=== PATIENT | male | born 1995 | race Caucasian/White ===

== ENCOUNTER 2020-01-03 17:33 | Emergency (ER) | payer MEDICAID, SELFPAY ==
[2020-01-03 17:29] VITALS: BP 166/101; PULSE 84; RESP 20; TEMP 37; O2SAT 9
--- NOTE | 2020-01-03 17:30 | DI.RAD_ITS ---
EXAM: XR KNEE RT 4V AP,LAT,WALLACE,PAT CLINICAL HISTORY: pain, post patellar dislocation TECHNIQUE: 2D digital imaging was performed. COMPARISON: No exams were available for comparison FINDINGS: The patella is dislocated and is located lateral to the lateral femoral condyle. There is a small f racture fragment located in the intercondylar sulcus which may arise from the medial aspect of the pa tella. A small linear fracture fragment is also seen at the medial aspect of the patella. There is m arked anterior soft tissue swelling. The femur and proximal tibial tibia and fibula appear intact. IMPRESSION: Lateral dislocation of the patella with fracture fragment located in the intercondylar sulcus which m ay originate from the medial aspect of the patella.
--- NOTE | 2020-01-03 18:06 | W.ED.GENAD ---
Discharge Plan Disposition Patient Disposition: HOME Condition: Stable Discharge Details Chief Complaint: Trauma Clinical Impression: Closed dislocation of right patella Primary Care Provider: Flower Huff ED Provider: Cory Prasad Home Meds and New Rx's Prescriptions: No Action No Known Home Meds RF: 0 Discharge Instructions Instructions: Patellar Dislocation (ED) Additional Instructions: Please take ibuprofen over the counter. Take 600mg by mouth every 6 hours as needed for pain. Please use knee immobilizer and crutches. No weightbearing. If swelling becomes severe, you can loosen immobilizer and wrapped. Please contact orthopedics to arrange follow-up. Return to the ER for any worsening or new concerning symptoms. Referrals: Román Hinojosa MD [ [facility] STAFF PHYSICIAN] - Medical Decision Making 18:00 --24-year-old male here with knee pain after twisting the while playing basketball, tender anterior medially with significant effusion and patellar dislocation. Patient provided verbal consent to patella relocation. Patella was reduced very easily by extending leg and manipulating patella medially. Patient tolerated well and no complication. X-ray of the knee was obtained after patellar relocation and patellar seems to have dislocated and subluxed laterally again presumably with positioning during x-ray. -- On reassessment his knee was again slightly flexed. I extended his knee and relocated patella. Aptrick wrap and Knee immobilizer placed. Crutches provided. -- Plan for outpatient follow-up with orthopedics. I did call and speak with Dr. Hinojosa on the case who reviewed x-ray and agrees with the immobilizer and crutches and will see the patient in follow-up this week. HPI General Mode of arrival: EMS. Date/Time Provider Initiated Documentation: 01/03/20 17:40. Limitations to Documentation: no limitations. Information obtained by: patient. HPI Narrative: 24-year-old male presents with right knee pain. Patient notes he was playing basketball and twisted his knee and thinks he dislocated it. It feels like his kneecap is out of place. He has associated swelling and pain. Pain is moderate to severe and worse with attempted movement of the knee. No associated numbness. He has not had patellar dislocation in the past. Related Data Home Medications Medication Instructions Recorded Confirmed Unknown [No Known Home Meds] 01/03/20 01/03/20 Allergies Allergy/AdvReac Type Severity Reaction Status Date / Time amoxicillin Allergy Unknown Hives Unverified 01/03/20 17:36 Penicillins Allergy Unknown Hives Unverified 01/03/20 17:36 General Stated Complaint: Trauma NOEL: 3 Review of Systems Musculoskeletal Musculoskeletal: Reports as per HPI Integumentary/Breasts Skin/Breast: Reports other (No laceration) Neurologic Neurologic: Reports as per HPI [facility] Social History Smoking/Tobacco Use Status: Current every day Alcohol Intake: current Drug use: Never Do you feel safe at home: Yes Do you feel safe in your relationship?: Yes Exam Const General: cooperative and no acute distress HENMT Head: normocephalic Cardio Rate: regular rate and not tachycardic Rhythm: regular rhythm Skin General skin exam: no rashes or lesions noted Neuro General: patient alert, patient awake, patient oriented x3 and tone normal Extrem Right lower extremity: knee Details: tenderness Location: of the patella and of the medial joint line, swelling and abnormal ROM Details: held in an abnormal fashion Details: in flexion, pain with active ROM during Details: in extension and unable to extend lower leg actively Course Vital Signs Vital signs: Vital Signs Temperature 37.0 C 01/03/20 17:29 Pulse 84 01/03/20 17:29 Respiratory Rate 20 01/03/20 17:29 Blood Pressure 166/101 H 01/03/20 17:29 Pulse Oximetry 9 L 01/03/20 17:29 Temperature 37.0 C 01/03/20 17:29 Temperature Source Skin 01/03/20 17:29 Pulse 84 01/03/20 17:29 Respiratory Rate 20 01/03/20 17:29 Respiratory Effort Non-Labored 01/03/20 17:36 Respiratory Depth Normal 01/03/20 17:36 Respiratory Pattern Normal 01/03/20 17:36 Blood Pressure 166/101 H 01/03/20 17:29 Blood Pressure Position Supine 01/03/20 17:29 Pulse Oximetry 9 L 01/03/20 17:29 Oxygen Delivery Method Room Air 01/03/20 17:29 Oxygen Flow Rate 0 01/03/20 17:29 Pain Level 6 01/03/20 17:36 Procedures Orthopedic Joint Reduction Joint #1: Time Out Performed: Yes Side: right Joint Reduction Location: knee/patella Analgesia: none Technique used: direct manipulation (Extension of knee with manipulation of patella medially) Post-reduction neuro exam: intact Post-reduction vascular: intact and no change Patient Tolerated Procedure: well and no complications
--- NOTE | 2020-01-03 18:18 | DI.VRAD_ITS ---
PROCEDURE INFORMATION: Exam: XR Left Knee Exam date and time: 01/03/2020 5:59 PM Age: 24 years old Clinical indication: Other: Pain, post patellar dislocation TECHNIQUE: Imaging protocol: XR Left knee. Views: 4 or more views. COMPARISON: No relevant prior studies available. FINDINGS: Bones/joints: There is a complete lateral patellar dislocation. On the sunrise view between the intercondylar recess there is a 13 mm calcification likely representing a fracture fragment. The donor site is not apparent and the fragment is not visible on the other projections. There is also a linear ossific fragment also on the sunrise view along the medial aspect of the dislocated patella consistent with an avulsion fragment. Soft tissues: There is extensive diffuse soft tissue swelling about the knee. IMPRESSION: Lateral patellar dislocation with associated avulsion fracture and additional fracture fragment of uncertain origin. Dictated and Authenticated by: Fahad Ferrari MD. Ordering:SUNSHINE Ray MD
--- NOTE | 2020-01-03 18:20 | NUR.NOTE ---
Nursing Note: Faxed Referral to Ortho
[2020-01-03 19:03] VITALS: BP 166/101; PULSE 84; RESP 20; TEMP 37; O2SAT 9
== END 2020-01-03 19:05 | disposition home or self-care (01) ==
PROVIDERS: Emergency Provider Student in an Organized Health Care Education/Training Program; PCP Family Medicine
DX: S83.004A Unspecified dislocation of right patella, initial encounter (principal); W00.0XXA Fall on same level due to ice and snow, initial encounter
CPT/HCPCS: 27560; 73564; E0114; L1830

== ENCOUNTER 2020-01-06 11:05 | Outpatient (CLI) | payer MEDICAID, SELFPAY ==
--- NOTE | 2020-01-06 10:45 | DI.RAD_ITS ---
EXAM: XR KNEE RT 3V AP,LAT,WALLACE CLINICAL HISTORY: F/U INJURY. TECHNIQUE: 2D digital imaging was performed. COMPARISON: XR KNEE RT 4V AP,LAT,WALLACE,PAT from 01/03/2020 FINDINGS: BONES: There is again seen a fracture fragment likely arising from the patella. It now lies inferior and medial to the patella. No bony destructive lesion is seen. There is persistent lateral dislocat ion of the right patella. The degree of dislocation has decreased compared to the prior examination. No new fracture is identified. JOINTS: Persistent lateral patellar dislocation. Small joint effusion is present. SOFT TISSUE: Soft tissue swelling is noted. IMPRESSION: Persistent but decreased degree of the lateral dislocation of the right patella. The fracture fragment now lies inferior and medial to the patella. DATA REPOSITORY: RADIATION DOSE DELIVERED:
--- NOTE | 2020-01-06 11:10 | DI.RAD_ITS ---
EXAM: XR ANKLE RT COMPLETE CLINICAL HISTORY: ANKLE SPRAIN. TECHNIQUE: 2D digital imaging was performed. COMPARISON: No exams were available for comparison FINDINGS: BONES: No acute fracture is identified. JOINTS: The ankle mortise is normally aligned. SOFT TISSUE: Normal. IMPRESSION: Unremarkable radiographs of the right ankle. DATA REPOSITORY: RADIATION DOSE DELIVERED:
== END 2020-01-06 11:25 ==
PROVIDERS: PCP Family Medicine; Visit Provider Student in an Organized Health Care Education/Training Program
DX: M25.571 Pain in right ankle and joints of right foot (principal); S93.401A Sprain of unspecified ligament of right ankle, initial encounter; S82.001A Unspecified fracture of right patella, initial encounter for closed fracture; S83.011A Lateral subluxation of right patella, initial encounter; M25.461 Effusion, right knee; M79.89 Other specified soft tissue disorders
CPT/HCPCS: 73562; 73610

== ENCOUNTER 2020-01-13 00:45 | Outpatient (CLI) | payer MEDICAID, SELFPAY ==
--- NOTE | 2020-01-13 10:00 | DI.MRI_ITS ---
EXAM: MR LIMITED EXAM CLINICAL HISTORY: RT PATELLAR FX,CLOSED DISLOCATION,S82.001A,S83.004A,M23.40. TECHNIQUE: High-resolution T1 sagittal, T1 axial and gradient echo axial sequences were performed th rough the region of the patella. There is poor signal to noise on the T1 sagittal sequence. COMPARISON: XR KNEE RT 3V AP,LAT,WALLACE from 01/06/2020 MR LOWER JOINT RT WO from 01/08/2020 FINDINGS: There is fluid and some hemorrhage around the patella. The medial retinaculum is again noted to be disrupted. The bony fragment is faintly visible inferomedial to the patella as seen on the previous exam. A nondisplaced fracture at the medial border of the patella and osteochondral defect at the p atellar apex are again noted. IMPRESSION: The displaced bony fragment is difficult to visualize appears unchanged in position compared with th e previous exam. The CT is recommended for further evaluation. DATA REPOSITORY:
== END 2020-01-13 01:05 ==
PROVIDERS: PCP Family Medicine; Visit Provider Student in an Organized Health Care Education/Training Program
DX: S82.001A Unspecified fracture of right patella, initial encounter for closed fracture (principal); M22.8X1 Other disorders of patella, right knee
CPT/HCPCS: 72141; 72146; 72148

== ENCOUNTER 2020-01-13 11:11 | Outpatient (CLI) | payer MEDICAID, SELFPAY ==
--- NOTE | 2020-01-13 10:48 | DI.RAD_ITS ---
EXAM: XR KNEE RT 1V CLINICAL HISTORY: f/u of right patella dislocation TECHNIQUE: 2D digital imaging was performed. COMPARISON: XR KNEE RT 3V AP,LAT,WALLACE from 01/06/2020 MR LIMITED EXAM from 01/13/2020 FINDINGS: A single patellar view was performed. There has been no change in position of the bony fragment se en adjacent to the medial border of the patella. Lateral patellar subluxation is also unchanged.
== END 2020-01-13 11:31 ==
PROVIDERS: PCP Family Medicine; Visit Provider Student in an Organized Health Care Education/Training Program
DX: S73.01 Posterior subluxation and dislocation of hip (principal); S82.091D Other fracture of right patella, subsequent encounter for closed fracture with routine healing
CPT/HCPCS: 73560

== ENCOUNTER 2021-04-14 14:20 | Emergency (ER) | payer MEDICAID, SELFPAY ==
[2021-04-14 14:23] VITALS: BP 169/104; PULSE 102; TEMP 37.2; O2SAT 96
--- NOTE | 2021-04-14 15:23 | ED.GENADUL_ITS ---
Discharge Plan Disposition Patient Disposition: HOME Condition: Good Discharge Details Clinical Impression: Back pain, Balanitis Primary Care Provider: Flower Huff ED Provider: Alyssa Schrader Home Meds and New Rx's Prescriptions: New orphenadrine citrate 100 mg tablet extended release 100 mg PO BID Qty: 10 RF: 0 clotrimazole 1 % cream 1 applic topical BID 14 Days Qty: 90 RF: 0 Discharge Instructions Instructions: Back Pain (ED) Additional Instructions: Attention to genital hygiene is the most important approach for most men with balanitis. Retraction of the foreskin with thorough genital cleansing can be both preventive and therapeutic. Twice-daily bathing of the affected area with saline solution should be encouraged [22,26]. Light stretching is recommended, no lifting greater than 5 pounds use clotrimazole for 7-14 days loose fitting clothing Or worsening back pain, groin numbness, changes in bowel or bladder, fever, chills, radiation pain or weakness in your extremities, is recommended to be reevaluated Stand Alone Forms: Work Release Discharge Data Discharge Date/Time-TO BE ENTERED AT DEPARTURE: 04/14/21 15:37 Medical Decision Making Patient appears well, no clinical evidence of cauda equina syndrome, ambulatory with steady gait Neurologically intact, suspect musculoskeletal back pain Placed on Norflex and ibuprofen Prescribed clotrimazole for balanitis likely fungal Hygiene discussed Return precautions discussed Work note supplied Patient discharged home in stable condition, blood pressure is elevated, patient instructed to have this rechecked by primary care physician, respiration rate 14 Precautions discussed understanding Declines risk of sexually transmitted disease Extracted with patient Medical Records Medical records reviewed: Yes I reviewed the patient's medical records. Lab Data Lab results reviewed: Yes I reviewed the patient's lab results. HPI General Date/Time Provider Initiated Documentation: 04/14/21 14:39 . Limitations to Documentation: no limitations . Information obtained by: patient . 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 He states he recommended 7. Defibrillator today the pain is worsening. Is exacerbated by flexion extension. He denies any groin numbness, history of illicit drug use, or radiation of pain. He denies any strength or sensation changes to extremities. He also complains of pain and swelling to his foreskin. He states he started using Cottonelle wipes and the foreskin became very painful and macerated. He states that when he urinates it nance in the area. He states he is able to move his foreskin back with discomfort. Denies any additional complaints this time. Related Data Home Medications Medication Instructions Recorded Confirmed clotrimazole 1 applic TOPICAL BID 14 Days #90 g 04/14/21 orphenadrine citrate 100 mg PO BID #10 tab 04/14/21 Previous Rx's Medication Instructions Recorded clotrimazole 1 applic TOPICAL BID 14 Days #90 g 04/14/21 orphenadrine citrate 100 mg PO BID #10 tab 04/14/21 Allergies Allergy/AdvReac Type Severity Reaction Status Date / Time amoxicillin Allergy Unknown Hives Verified 04/14/21 14:32 Penicillins Allergy Unknown Hives Verified 04/14/21 14:32 General Stated Complaint: GenMedical NOEL: 3 Review of Systems All systems reviewed & are unremarkable except as noted in HPI and below PFSH Social History Smoking/Tobacco Use Status: Former Tobacco Use Quit Date: 09/24/15 Tobacco: How many years used: 5 Smoking risk assessment performed?: Yes Alcohol Intake: current Alcohol Intake frequency: a few times a week Alcohol type: beer Drug use: Never Substance use type: does not use Current gender identity: male Do you feel safe at home: Yes Do you feel safe in your relationship?: Yes Exam Const General: cooperative, comfortable and no acute distress Resp Effort & Inspection: normal respiratory effort Cardio Rate: regular rate Other: Distal pulses intact GI Other: No abdominal tenderness Other: Macerated foreskin likely can pinch with a tinea curious infection And balanitis Patient without any evidence of overlying cellulitis, no paraphimosis or phimosis noted Back/Spine/Pelvis Back: no CVA tenderness Other: Mild paraspinal tenderness to right thigh, no midline tenderness Neuro Other: No sensory deficits, DTRs intact bilateral lower extremities, negative Babinski, negative straight leg raise, strength intact bilateral lower extremities Course Vital Signs Vital signs: Vital Signs Temperature 37.2 C 04/14/21 14:23 Pulse 102 H 04/14/21 14:23 Blood Pressure 169/104 H 04/14/21 14:23 Pulse Oximetry 96 04/14/21 14:23 Temperature 37.2 C 04/14/21 14:23 Temperature Source Temporal Artery Scan 04/14/21 14:23 Pulse 102 H 04/14/21 14:23 Respiratory Effort Non-Labored 04/14/21 14:30 Blood Pressure 169/104 H 04/14/21 14:23 Blood Pressure Position Sitting 04/14/21 14:23 Pulse Oximetry 96 04/14/21 14:23 Oxygen Delivery Method Room Air 04/14/21 14:23 Oxygen Flow Rate 0 04/14/21 14:23 Pain Level 9 04/14/21 14:23 Comment 04/14/21 14:23
== END 2021-04-14 15:37 | disposition home or self-care (01) ==
PROVIDERS: Emergency Provider Physician Assistant; PCP Family Medicine
DX: M54.89 Other dorsalgia (principal); X50.1XXA Overexertion from prolonged static or awkward postures, initial encounter; Y99.0 Civilian activity done for income or pay; N48.1 Balanitis
CPT/HCPCS: 99283

== ENCOUNTER 2022-03-10 10:00 | Emergency (ER) | payer BC, MEDICAID, SELFPAY ==
[2022-03-10 10:07] VITALS: BP 160/95; PULSE 90; RESP 17; TEMP 36.8; O2SAT 98
--- NOTE | 2022-03-10 10:15 | W.ED.GENAD ---
Discharge Plan Disposition Patient Disposition: HOME Condition: Stable Discharge Details Clinical Impression: Right inguinal pain Primary Care Provider: Flower Huff ED Provider: Aniceto Yanez Home Meds and New Rx's Prescriptions: No Action No Known Home Meds Discharge Instructions Instructions: Inguinal Hernia (ED) Additional Instructions: Your laboratory values do not reveal any obvious emergent process. Your history and physical are most consistent with a right-sided inguinal hernia. Please watch for new or worsening symptoms and return to the ER for any concerns. Otherwise I recommend contacting our surgical team to discuss your ongoing symptoms and potential outpatient surgical intervention Referrals: Corina Randle DO [OSTEOPATHIC DOCTOR] - Medical Decision Making This is a 27-year-old gentleman who denies significant past medical history. He presents today for evaluation of what he describes as a right-sided abdominal pain. When he is asked to show where the pain is he actually points to his groin. He tells me the pain today is worse than usual but he has had pain in this area over the past year intermittently, nothing really makes it worse or better. 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 He tells me he is concerned that this may be his appendix or possibly a hernia. Clinically this would appear to be an inguinal hernia although I am unable to appreciate one on my examination. Abdomen is soft, nontender. Groin is unremarkable. Denies any dysuria, hematuria, penile discharge, pain or swelling in his testicles. No findings consistent with a strangulated or incarcerated hernia. Plan is to obtain CBC, CMP, urinalysis and lipase and reassess No evidence of leukocytosis. Electrolytes unremarkable. Patient with a total bili of 1.4, no previous to compare with. AST and ALT minimally elevated at 71 and 98. He denies any right upper quadrant pain, fever, nausea or vomiting. Lipase is 35. No change of appetite. Again he presents today for right lower abdominal pain which is truly his right groin, concerning for a hernia. Based upon these incidental findings I do not believe they require emergent imaging. He has a urinalysis reveals no signs of hematuria or infection. Strict discharge and return precautions were provided. Will provide surgical referral for evaluation of his likely inguinal hernia and slightly abnormal LFTs. Strict discharge and return precautions were provided. Patient understands, is agreeable to this plan, and has no additional questions or concerns upon discharge. This documentation was generated using [employer]aren[employer] system, please disregard any oddities of phrase or misspellings. Medical Records Medical records reviewed: Yes I reviewed the patient's medical records. Lab Data Lab results reviewed: Yes I reviewed the patient's lab results. Labs: Laboratory Tests Range/Units 03/10/22 03/10/22 03/10/22 10:15 10:15 10:35 WBC (4.4-10.8) 10^3/uL 8.18 RBC (4.36-5.78) 10^6/uL 5.01 Hgb (13.5-17.5) g/dL 16.1 Hct (40.0-50.0) % 46.7 MCV (80-95) fL 93 MCH (27.0-33.0) pg 32.1 MCHC (32.0-36.0) % 34.5 RDW (11.8-14.1) % 11.6 L Plt Count (130-400) 10^3/uL 256 MPV (8.0-11.0) fL 10.3 Immature Gran % 0.2 Neutrophils % 66.5 Lymphocytes % 22.2 Monocytes % 8.2 Eosinophils % 2.0 Basophils % 0.9 Nucleated RBC % (0.0-0.3) % 0.0 Absolute Neutrophils (1.2-6.7) 10^3/uL 5.44 Absolute Lymphocytes (1.2-3.4) 10^3/uL 1.82 Absolute Monocytes (0.1-0.8) 10^3/uL 0.67 Absolute Eosinophils (0.0-0.7) 10^3/uL 0.16 Absolute Basophils (0.0-0.2) 10^3/uL 0.07 Sodium (136-145) mmol/L 142 Potassium (3.5-5.1) mmol/L 3.6 Chloride (98-107) mmol/L 106 Carbon Dioxide (21.0-32.0) mmol/L 26.1 Anion Gap (3-11) mmol/L 9.9 BUN (7-18) mg/dL 8 Creatinine (0.70-1.30) mg/dL 0.7 Estimated GFR/1.73 m2 (mL/min/1.73m2) >= 60.00 Glucose (74-106) mg/dL 159 H Calcium (8.5-10.1) mg/dL 9.3 Total Bilirubin (0.2-1.0) mg/dL 1.4 H AST (15-37) U/L 71 H ALT (16-63) U/L 98 H Alkaline Phosphatase (46-116) U/L 108 Total Protein (6.4-8.2) g/dL 8.4 H Albumin (3.4-5.0) g/dL 4.1 Lipase (73-393) U/L 35 Urine Color (Yellow) Yellow Urine Clarity (Clear) Clear Urine pH (5-8) 6.5 Ur Specific Bill[place] (1.005-1.025) 1.025 Urine Protein (Negative) mg/dL Negative Urine Ketones (Negative) mg/dL Negative Urine Blood (Negative) Negative Urine Nitrite (Negative) Negative Urine Bilirubin (Negative) Negative Urine Urobilinogen (Up TO 0.2) EU/dL 1.0 H Ur Leukocyte Esterase (Negative) Negative Urine Glucose (Negative) mg/dL Negative HPI General Mode of arrival: ambulatory. Date/Time Provider Initiated Documentation: 03/10/22 10:01. Limitations to Documentation: no limitations. Information obtained by: patient. History of Present Illness 27 year old M presents to the emergency department with the chief complaint of abd pain, described as moderate, with intensity rated at 4. Quality is described as aching, and is localized to the abdomen and right. Patient reports no radiation. Patient started experiencing this day(s) (3) and it has been constant. No relieving factors improve symptom(s), No exacerbating factors reported . Patient notes no other symptoms.. Patient did receive the following treatments prior to arrival, none Related Data Home Medications Medication Instructions Recorded Confirmed Unknown [No Known Home Meds] 03/10/22 03/10/22 Allergies Allergy/AdvReac Type Severity Reaction Status Date / Time amoxicillin Allergy Unknown Hives Verified 03/10/22 10:16 Penicillins Allergy Unknown Hives Verified 03/10/22 10:16 General Stated Complaint: Abd Prob NOEL: 3 Review of Systems Constitutional Constitutional: Denies fever(s) Cardiovascular Cardiovascular: Denies chest pain and Denies dyspnea Respiratory Respiratory: Denies cough and Denies dyspnea Gastrointestinal Gastrointestinal: Reports abdominal pain, Denies constipation, Denies diarrhea, Denies nausea and Denies vomiting Genitourinary Genitourinary: Denies dysuria Musculoskeletal Musculoskeletal: Denies back pain Integumentary/Breasts Skin/Breast: Denies rash PFSH All Active Problems (Updated 03/10/22 @ 11:10 by DILIP Chairez) Back pain (Acute) Balanitis (Acute) Right inguinal pain (Acute) Dislocation, patella closed (Acute 01/03/20) Right patella fracture (Acute 01/03/20) Bodies, loose, knee (Acute 01/03/20) Social History Smoking/Tobacco Use Status: Former Tobacco Use Quit Date: 09/24/15 Tobacco: How many years used: 5 Smoking risk assessment performed?: Yes Alcohol Intake: current Alcohol Intake frequency: a few times a week Alcohol type: beer Drug use: Socially Substance use type: marijuana Current gender identity: male Do you feel safe at home: Yes Do you feel safe in your relationship?: Yes Exam Const General: cooperative, healthy appearing, comfortable and no acute distress Orientation: alert and awake HENTX Head: normal to inspection, normocephalic and atraumatic Face and sinus: normal facial exam Mouth: moist mucous membranes Eyes General: appearance normal, both eyes and all related structures Conjunctivae: conjunctivae normal Neck Neck: normal visual inspection, trachea midline and supple Resp Effort & Inspection: normal respiratory effort and able to speak in complete sentences Auscultation: clear to auscultation bilaterally Cardio Rate: regular rate Rhythm: regular rhythm GI Inspection: normal to inspection and obesity Palpation: soft, not firm, no guarding, no pulsatile masses and nontender Auscultation: normal bowel sounds Male General Exam: Yes normal external exam, No hernia and Yes other (Examined both while lying and standing) Penis: normal penis Meatus: meatus normal Scrotum: scrotum normal Testes: normal Back/Spine/Pelvis Back: no CVA tenderness and No back tenderness Skin General skin exam: no rashes or lesions noted Neuro General: patient alert, patient awake, moves all extremities and no focal motor deficits Sensory Exam: no sensory deficits noted Psych Appearance: grossly normal Mental Status: mental status grossly normal Course Vital Signs Vital signs: Vital Signs Temperature 36.8 C 03/10/22 10:07 Pulse 90 03/10/22 10:07 Respiratory Rate 17 03/10/22 10:07 Blood Pressure 160/95 H 03/10/22 10:07 Pulse Oximetry 98 03/10/22 10:07 Temperature 36.8 C 03/10/22 10:07 Temperature Source Temporal Artery Scan 03/10/22 10:07 Pulse 90 03/10/22 10:07 Respiratory Rate 17 03/10/22 10:07 Respiratory Effort Non-Labored 03/10/22 10:10 Blood Pressure 160/95 H 03/10/22 10:07 Blood Pressure Position Sitting 03/10/22 10:07 Pulse Oximetry 98 03/10/22 10:07 Oxygen Delivery Method Room Air 03/10/22 10:07 Oxygen Flow Rate 0 03/10/22 10:07 Pain Level 9 03/10/22 10:10 PAWSS Have you Been Recently Intoxicated or Drunk Within the Last 30 days?: Yes Have you Ever Experienced Previous Episodes of Alcohol Withdrawal?: No Have you ever Experienced Withdrawal Seizures?: No Have you ever Experienced Delirium Tremens(DT)s?: No Have you ever undergone Alcohol Rehabilitation Treatment (i.e, inpt ot outpatient treatment programs)?: No Have you ever Experienced Blackouts?: No Have you ever Combined Alcohol with other Downers within the last 90 days?: No Have you ever Combined Alcohol with any other Substance of Abuse during the last 90 days?: No Result: 1
[2022-03-10 10:26] LABS: Abs Immature Grans 0.02 10^3/uL (0.0-0.06); Absolute Basophil Count 0.07 10^3/uL (0.0-0.2); Absolute Eosinophil Count 0.16 10^3/uL (0.0-0.7); Absolute Lymphocyte Count 1.82 10^3/uL (1.2-3.4); Absolute Monocyte Count 0.67 10^3/uL (0.1-0.8); Absolute Neutrophil Count 5.44 10^3/uL (1.2-6.7); Basophils % 0.9; HCT 46.7 % (40.0-50.0); HGB 16.1 g/dL (13.5-17.5); Immature Grans % 0.2; Lymphocytes % 22.2; MCH 32.1 pg (27.0-33.0); MCHC 34.5 % (32.0-36.0); MCV 93 fL (80-95); MPV 10.3 fL (8.0-11.0); Monocytes % 8.2; Neutrophils % 66.5; Platelet Count 256 10^3/uL (130-400); RBC 5.01 10^6/uL (4.36-5.78); RDW 11.6 % (11.8-14.1); RDW-SD 39.3 fL; WBC 8.18 10^3/uL (4.4-10.8)
[2022-03-10 10:45] LABS: Bilirubin Negative (Negative); Blood Negative (Negative); Clarity Clear (Clear); Glucose Negative (Negative); Ketones Negative (Negative); Leukocyte Esterase Negative (Negative); Nitrite Negative (Negative); Specific Gravity 1.025 (1.005-1.025); pH 6.5 (5-8)
[2022-03-10 10:48] LABS: ALT 98 U/L (16-63); AST 71 U/L (15-37); Albumin 4.1 g/dL (3.4-5.0); Alkaline Phosphatase 108 U/L (46-116); Anion Gap 9.9 mmol/L (3-11); BUN 8 mg/dL (7-18); Bilirubin, Total 1.4 mg/dL (0.2-1.0); CO2 26.1 mmol/L (21.0-32.0); CREATININE 0.7 mg/dL (0.70-1.30); Calcium 9.3 mg/dL (8.5-10.1); Chloride 106 mmol/L (98-107); Glucose 159 mg/dL (74-106); Lipase 35 U/L (73-393); Potassium 3.6 mmol/L (3.5-5.1); Sodium 142 mmol/L (136-145); Total Protein 8.4 g/dL (6.4-8.2)
== END 2022-03-10 11:15 | disposition home or self-care (01) ==
PROVIDERS: Emergency Provider Physician Assistant; PCP Family Medicine
DX: R10.31 Right lower quadrant pain (principal)
CPT/HCPCS: 36415; 80053; 83690; 99283; 81003; 85025

== ENCOUNTER 2022-05-02 11:46 | Emergency (ER) | payer BC, MEDICAID, SELFPAY ==
[2022-05-02] VITALS (20 sets, daily range): BP systolic 143–167; BP diastolic 75–105; PULSE 70–102; RESP 11–27; TEMP 36.7–37.2; O2SAT 96–100
--- NOTE | 2022-05-02 11:45 | RT.EKG_ITS ---
APPROVED REPORT Exam: Resting ECG Reason for Exam: feeling faint Patient Location: E HR:81 bpm ECG Measurements Heart Rate 81 AXIS MO 176 P 62 QRSd 109 QRS 11 QT 373 T 27 QTc 434 Conclusion Sinus rhythm...normal P axis, V-rate 60- 99 sinus rhythm, normal axis, normal intervals
--- NOTE | 2022-05-02 12:05 | DI.RAD_ITS ---
Exam(s) XR CHEST 1V IN DI DEPT EXAM: XR CHEST 1V IN DI DEPT CLINICAL HISTORY: htn and tachycardia TECHNIQUE: 2D digital imaging was performed. COMPARISON: No exams were available for comparison FINDINGS: LUNGS: Clear. No pleural abnormality seen. HEART: Normal. AORTA: Normal. BONES: Unremarkable for age. Soft tissues: Unremarkable. IMPRESSION: No acute findings. DATA REPOSITORY: RADIATION DOSE DELIVERED:
--- NOTE | 2022-05-02 12:07 | ED.GENADUL_ITS ---
Discharge Plan Disposition Patient Disposition: HOME Condition: Improving Discharge Details Chief Complaint: Dizzy/Sync Clinical Impression: Acute dehydration, Fatigue, Hepatic steatosis Primary Care Provider: Flower Huff ED Provider: Patel Marcelino Home Meds and New Rx's Prescriptions: No Action No Known Home Meds Discharge Instructions Instructions: Dehydration (ED) Additional Instructions: Please follow-up with your primary care physician. Please discuss your blood test findings which include elevated liver enzymes. Please return to the emergency department you develop any worsening symptoms. Ensure that you stay hydrated consider using Gatorade and/or Pedialyte Medical Decision Making 27-year-old male denies chest medical history presents feeling lightheaded, jittery and weakness to his bilateral legs in the setting of lifting a desk at work, felt a nieto to his body, slightly improved after rest and eating a popsicle, does have some drying of oral mucosa and warm dry skin, no chest pain or shortness of breath did have mild nausea. Endorses eating a small breakfast today. Family history of diabetes. No history of cardiac disease or stroke for the patient. Consider overexertion with component of heat exposure versus dehydration versus electrolyte abnormality versus hypoglycemia versus panic attack lower suspicion for ACS PE aortic pathology infectious etiology or stroke. Screening labs fluids antiemetic and anxiolysis, rest close reassessment likely home with close follow-up pending results 14: 24 patient resting comfortably no acute distress. Feeling better after rest and fluids. Blood pressure is improved. Evidence of transaminitis and hepatic steatosis likely related to body habitus and diet. No evidence of cholecystitis. Home care instructions and return precautions given. Family here to take him home. Patient will follow up with his primary care physician. HPI General Date/Time Provider Initiated Documentation: 05/02/22 11:48 . HPI Narrative: 27-year-old male no past medical history presents feeling lightheaded, endorses feeling a nieto to his body while lifting a desk at work, denies history of cardiac disease stroke or diabetes however diabetes does run in the family, did eat a small breakfast this morning. No chest pain or shortness of breath. Did not lose consciousness however feels jittery. Denies new stressors at work or at home. Did have sensation that his legs felt weak during this event. Currently feeling slightly better was given a popsicle at work by a coworker Related Data Home Medications Medication Instructions Recorded Confirmed Unknown [No Known Home Meds] 03/10/22 05/02/22 Allergies Allergy/AdvReac Type Severity Reaction Status Date / Time amoxicillin Allergy Unknown Hives Verified 05/02/22 11:55 Penicillins Allergy Unknown Hives Verified 05/02/22 11:55 General Stated Complaint: Dizzy/Sync NOEL: 3 Review of Systems Narrative: Review of Systems Constitutional: Fatigue Eyes: negative ENT: negative Cardiovascular: negative Respiratory: negative Gastrointestinal: nausea : negative Musculoskeletal: negative Skin: negative Neurologic: Leg weakness Psych: negative PFSH All Active Problems (Updated 05/02/22 @ 14:27 by Patel Marcelino MD) Acute dehydration (Acute) Fatigue (Acute) Hepatic steatosis (Acute) Hypertension (Chronic) Medical History Ankle sprain (01/03/20) Back pain Balanitis Bodies, loose, knee (01/03/20) Dislocation, patella closed (01/03/20) Right patella fracture (01/03/20) Social History Smoking/Tobacco Use Status: Former Tobacco Use Quit Date: 09/24/15 Tobacco: How many years used: 5 Smoking risk assessment performed?: Yes Alcohol Intake: current Alcohol Intake frequency: a few times a week Alcohol type: beer Drug use: Socially Substance use type: marijuana Current gender identity: male Do you feel safe at home: Yes Do you feel safe in your relationship?: Yes Exam Narrative Exam Narrative: Physical Examination General: alert, awake, cooperative, appears moderately uncomfortable HEENT: normocephalic, atraumatic; PERRL, EOM intact, conjunctiva normal; no nasal discharge; dry oral mucosa Neck: supple, trachea midline; full ROM Chest: normal to inspection Respiratory: normal respiratory effort, speaking in full sentences, clear to auscultation, no wheezing, rales or rhonchi Cardiac: Tachycardia, regular rhythm, S1S2 intact, no murmurs rubs or gallops GI: abdomen soft, non-tender, non-distended; no palpable mass or hepatosplenomegaly Skin: slightly warm and dry Neuro: AAOx3, normal speech, moving all extremities Extremities: No signs of trauma Psych: Appears slightly anxious Course Vital Signs Vital signs: Vital Signs Temperature 36.7 C 05/02/22 11:51 Pulse 102 H 05/02/22 11:51 Respiratory Rate 16 05/02/22 11:51 Blood Pressure 167/105 H 05/02/22 11:51 Pulse Oximetry 98 05/02/22 11:51 Temperature 36.7 C 05/02/22 11:51 Pulse 102 H 05/02/22 11:51 Respiratory Rate 16 05/02/22 11:51 Respiratory Effort 05/02/22 11:58 Respiratory Depth Normal 05/02/22 11:58 Respiratory Pattern Normal 05/02/22 11:58 Blood Pressure 167/105 H 05/02/22 11:51 Pulse Oximetry 98 05/02/22 11:51
[2022-05-02] MEDS: Normal Saline 1,000 ML 1000 ML IV (12:24)
[2022-05-02] MEDS: Ondansetron 4 MG/2 ML VIAL IVP (12:26)
[2022-05-02 12:32] LABS: Abs Immature Grans 0.03 10^3/uL (0.0-0.06); Absolute Basophil Count 0.07 10^3/uL (0.0-0.2); Absolute Lymphocyte Count 1.15 10^3/uL (1.2-3.4); Basophils % 0.9; Eosinophils % 1.2; HCT 46.6 % (40.0-50.0); HGB 16.2 g/dL (13.5-17.5); Immature Grans % 0.4; Lymphocytes % 14.1; MCH 32.1 pg (27.0-33.0); MCHC 34.8 % (32.0-36.0); MCV 92 fL (80-95); MPV 10.1 fL (8.0-11.0); Monocytes % 7.4; Platelet Count 213 10^3/uL (130-400); RBC 5.05 10^6/uL (4.36-5.78); RDW 11.7 % (11.8-14.1); RDW-SD 39.3 fL; WBC 8.15 10^3/uL (4.4-10.8)
[2022-05-02 12:33] LABS: Bilirubin Negative (Negative); Blood Negative (Negative); Clarity Clear (Clear); Glucose Negative (Negative); Ketones 15 mg/dL (Negative); Leukocyte Esterase Negative (Negative); Nitrite Negative (Negative); Specific Gravity 1.025 (1.005-1.025); Urobilinogen 0.2 EU/dL (Up TO 0.2)
[2022-05-02 12:45] LABS: Bacteria Negative HPF (Negative); C & S Indicated? No; Casts 0-2 Hyaline LPF (Negative); Crystals Negative HPF (Negative); Epithelial Cells Few HPF (Negative); Mucus Trace (Negative); RBC Negative HPF (0-2); WBC Negative HPF (0-5)
[2022-05-02 12:46] LABS: *AMPHETAMINES SCREEN URINE Negative (Negative); *BARBITURATES SCREEN URINE Negative (Negative); *BENZODIAZEPINES SCREEN URINE Negative (Negative); Cannabinoids THC Positive (Negative); Cocaine Screen,Urine Negative (Negative); METHADONE URINE SCREEN Negative (Negative); OPIATES URINE SCREEN Negative (Negative)
[2022-05-02 12:49] LABS: Tricyclic Antidepressants Negative (Negative)
[2022-05-02 12:58] LABS: ALT 108 U/L (16-63); AST 92 U/L (15-37); Albumin 4.2 g/dL (3.4-5.0); Alkaline Phosphatase 104 U/L (46-116); Anion Gap 10.1 mmol/L (3-11); BUN 6 mg/dL (7-18); Bilirubin, Total 1.6 mg/dL (0.2-1.0); CO2 25.9 mmol/L (21.0-32.0); CREATININE 0.7 mg/dL (0.70-1.30); Calcium 8.9 mg/dL (8.5-10.1); Chloride 103 mmol/L (98-107); Glucose 154 mg/dL (74-106); Magnesium 1.3 mg/dL (1.8-2.4); Potassium 3.4 mmol/L (3.5-5.1); Sodium 139 mmol/L (136-145); TSH (W/Ref FT4) 1.26 uIU/mL (0.36-3.74); Total Protein 8.3 g/dL (6.4-8.2); Troponin I < 50 ng/L (<or=60)
--- NOTE | 2022-05-02 13:00 | DI.CT_ITS ---
Exam(s) CT ABDOMEN PELVIS WO EXAM: CT ABDOMEN PELVIS WO CLINICAL HISTORY: lightheaded nausea, transaminitis and hyperbili. TECHNIQUE: Imaging Protocol: Axial computed tomography images with coronal and sagittal reformatted images were created and reviewed. Oral: no COMPARISON: No exams were available for comparison FINDINGS: ABDOMEN: Lung Bases: Normal where visualized. Liver: Enlarged at 23 cm in length. Severe hepatic steatosis.. No measurable mass. Gallbladder and biliary tract: No radiodense calculus or dilation. Pancreas: Normal density, no abnormal calcifications or inflammatory process. Spleen: Normal. Kidneys: Normal size, contour and axis. No radiodense stones or obstructive uropathy. No masses seen. Adrenal glands: No masses seen. Lymph nodes: Within normal limits. Abdominal Aorta: Abdominal portion non-dilated. PELVIS: Bladder: Symmetric distention, no gross wall thickening. Bowel: No obstruction or bowel wall thickening. Peritoneal cavity: No ascites, collection or mesenteric inflammatory response. Reproductive organs: Within normal limits. Bones: There are endplate osteophytes and and calcification at L3-4 projecting into the central canal , causing a moderate degree of central canal stenosis. Mild spurring is seen posteriorly at the L5-S 1 disc level. IMPRESSION: Severe hepatic steatosis. RADIATION DOSE DELIVERED: 1,116.49mGy.cm Total DLP DATA REPOSITORY: All CT scans at this facility are submitted to the National Radiology Data Registry (NRDR) Dose Index Registry (DIR) with the [employer] (ACR). RADIATION OPTIMIZATION: All CT scans at this facility use at least one of these dose optimization te chniques: automated exposure control; mA and/or kV adjustment per patient size (includes targeted exa ms where dose is matched to clinical indication); or iterative reconstruction.
--- NOTE | 2022-05-02 13:09 | CMPROGNOTE_ITS ---
- If Service Date Differs Date of service: 05/02/22 Time of Service: 13:09 Care Management Progress Note SBIRT screen: positive for anxiety ([facility]). Pt reports he occasionally uses cannabis to relieve anxiety but it is infrequent (monthly). We discussed effective practices for anxiety including mindfulness meditation and therapy. Pt endorses some experience with meditation. Pt was provided with resources for counseling in the community including the 24 hour number at [facility] for support as needed. Pt was encouraged to follow up with his PCP.
== END 2022-05-02 14:53 | disposition home or self-care (01) ==
PROVIDERS: Emergency Provider Emergency Medicine; PCP Family Medicine
DX: E86.0 Dehydration (principal); K76.0 Fatty (change of) liver, not elsewhere classified; Z87.891 Personal history of nicotine dependence; R00.0 Tachycardia, unspecified
CPT/HCPCS: 36415; 80053; 80307; 93005; 96361; 96374; 96375; 99285; 71045; 74176; 81003; 81015; 83735; 84443; 84484; 85025; 93010; 99284; J2405

== ENCOUNTER 2022-05-10 15:41 | Outpatient (REF) | payer BC, MEDICAID, SELFPAY ==
[2022-05-10 19:37] LABS: Hemoglobin A1C 5.9 % (<5.7); Iron 74 ug/dL (65-175); Total Iron Binding Capacity 251 ug/dL (250-450); Transferrin Sat 29 % (20-55)
[2022-05-10 19:38] LABS: Calculated LDL 95 mg/dL (<100); Cholesterol 169 mg/dL (<200); HDL Cholesterol 47 mg/dL (40-60); Triglyceride 136 mg/dL (<150)
[2022-05-12 11:04] LABS: Hepatitis A Antibody IgM Negative (Negative); Hepatitis B Core Antibody Negative (Negative); Hepatitis B surface Ag Negative (Negative); Hepatitis C Ab w Rflx HCV PCR Negative (Negative)
== END 2022-05-10 15:42 | disposition home or self-care (01) ==
LOC: NCHCN 15:41
PROVIDERS: PCP Family Medicine; Visit Provider Family Medicine
DX: F41.8 Other specified anxiety disorders (principal); K76.0 Fatty (change of) liver, not elsewhere classified
CPT/HCPCS: 80061; 86704; 86709; 86803; 87340; 83036; 83540; 83550

== ENCOUNTER 2023-05-22 09:36 | Emergency (ER) | payer MEDICAID, SELFPAY ==
[2023-05-22] VITALS (63 sets, daily range): BP systolic 142–167; BP diastolic 83–103; PULSE 76–101; RESP 12–30; TEMP 36.6; O2SAT 92–100
--- NOTE | 2023-05-22 09:45 | RT.EKG_ITS ---
APPROVED REPORT Exam: Resting ECG Reason for Exam: dizziness sob Patient Location: E HR:88 bpm ECG Measurements Heart Rate 88 AXIS DC 183 P 47 QRSd 104 QRS 15 QT 387 T 17 QTc 468 Conclusion Sinus rhythm...normal P axis, V-rate 60- 99 ST elev, probable normal early repol pattern...ST elevation, age<55
[2023-05-22] MEDS: Droperidol 5 MG/2 ML VIAL 2.5 MG IVP (10:04)
[2023-05-22] MEDS: Normal Saline 1,000 ML 1000 ML IV (10:05)
[2023-05-22 10:06] LABS: Abs Immature Grans 0.02 10^3/uL (0.0-0.06); Absolute Eosinophil Count 0.05 10^3/uL (0.0-0.7); Absolute Lymphocyte Count 1.02 10^3/uL (1.2-3.4); Absolute Monocyte Count 0.43 10^3/uL (0.1-0.8); Absolute Neutrophil Count 4.07 10^3/uL (1.2-6.7); Basophils % 1.8; Eosinophils % 0.9; HCT 49.9 % (40.0-50.0); HGB 17.8 g/dL (13.5-17.5); Immature Grans % 0.4; Lymphocytes % 17.9; MCH 32.9 pg (27.0-33.0); MCHC 35.7 % (32.0-36.0); MCV 92 fL (80-95); MPV 9.6 fL (8.0-11.0); Monocytes % 7.6; Neutrophils % 71.4; Platelet Count 262 10^3/uL (130-400); RBC 5.41 10^6/uL (4.36-5.78); RDW 11.4 % (11.8-14.1); RDW-SD 38.6 fL; WBC 5.69 10^3/uL (4.4-10.8)
--- NOTE | 2023-05-22 10:07 | ED.GENADUL_ITS ---
Discharge Plan Disposition Patient Disposition: Home Condition: Stable Discharge Details Clinical Impression: N&V (nausea and vomiting) Primary Care Provider: Flower Huff ED Provider: Celso Funk Home Meds and New Rx's Prescriptions: New ondansetron 4 mg tablet,disintegrating 4 mg PO Q8H PRN (Reason: nausea and vomiting) Qty: 30 0RF Discharge Instructions Instructions: Acute Nausea and Vomiting (ED) Additional Instructions: your blood work and xray did not show concerning findings today if symptoms continue in a week follow up with your primary care provider if you feel more ill, have severe worsening pain or persistent vomiting despite the prescribed medication return to the emergency department Medical Decision Making 28 yo male who denies chronic medical problems comes in with n/v starting this morning. He states he was doing well until this morning when he started to have n/v and felt short of breath while vomiting. He also noted some bruising and denies any trauma. Did feel lightheaded as well. He is caox4 speaking clearly and in no distress. He has no focal deficits, CN II_XII intact, nih of 0. he has no abdominal tenderness, clear lungs, no murmurs. He has a 3cm what appears to be a healing contusion on the left lateral chest without tenderness kayy 2cm contusion on the right lateral chest that is also not tender. Unclear etiology for his symptoms, will obtain cbc, ekg/troponin and cmp with lipase. Will treat with fluids and droperidol. He is perc negative and wells low so doubt Pe and no tearing back pain with equal peripheral pulses so doubt dissection labs and imaging with no acute emergent findings, patient feels better and is tolerating po. No abdominal tenderness and no chest pain so do not feel further imaging indicated. He is stable for d/c, advised to f/u with his pcp and return precautions given Differential Diagnosis Differential Diagnosis: tick illness, gastroenteritis, food illness Medical Records Medical records reviewed: Yes I reviewed the patient's medical records. Imaging Data Radiologic Study: Attestation: I personally reviewed and interpreted this imaging study as follows: Imaging: X-Ray Radiologist's impression: no acute findings Lab Data Lab results reviewed: Yes I reviewed the patient's lab results. ECG Data Attestation: I personally reviewed and interpreted this ECG (s) as follows: Prior ECG tracings: available for review Interpretation: sinus rate of 88, pr 183, no stemi HPI General Mode of arrival: ambulatory . Date/Time Provider Initiated Documentation: 05/22/23 09:39 . Limitations to Documentation: no limitations . Information obtained by: patient . History of Present Illness 28 year old M presents to the emergency department with the chief complaint of n/v, described as moderate, Patient started experiencing this hour(s) (2) and it has been constant. No relieving factors improve symptom(s), No exacerbating factors reported . Patient notes shortness of breath; denies chest pain. Patient did receive the following treatments prior to arrival, none Related Data Home Medications Medication Instructions Recorded Confirmed ondansetron 4 mg disintegrating 4 mg PO Q8H PRN nausea and 05/22/23 tablet vomiting #30 tabs Previous Rx's Medication Instructions Recorded ondansetron 4 mg disintegrating 4 mg PO Q8H PRN nausea and 05/22/23 tablet vomiting #30 tabs Allergies Allergy/AdvReac Type Severity Reaction Status Date / Time amoxicillin Allergy Unknown Hives Verified 05/22/23 09:47 Penicillins Allergy Unknown Hives Verified 05/22/23 09:47 General Stated Complaint: GenMedical NOEL: 3 Review of Systems All systems reviewed & are unremarkable except as noted in HPI and below Constitutional Constitutional: Denies chills and Denies fever(s) Cardiovascular Cardiovascular: Denies chest pain and Reports dyspnea Respiratory Respiratory: Denies cough and Reports dyspnea Gastrointestinal Gastrointestinal: Denies abdominal pain, Reports nausea and Reports vomiting Genitourinary Genitourinary: Denies dysuria PFSH All Active Problems (Updated 05/22/23 @ 11:44 by Celso Funk MD) N&V (nausea and vomiting) (Acute) Hypertension (Chronic) Medical History Ankle sprain (01/03/20) Back pain Balanitis Bodies, loose, knee (01/03/20) Dislocation, patella closed (01/03/20) Right patella fracture (01/03/20) Social History Smoking/Tobacco Use Status: Former Tobacco Use Quit Date: 09/24/15 Tobacco: How many years used: 5 Smoking risk assessment performed?: Yes Alcohol Intake: current Alcohol Intake frequency: a few times a week Alcohol type: beer Drug use: Socially Substance use type: marijuana Housing: house Current gender identity: male Do you feel safe at home: Yes Do you feel safe in your relationship?: Yes Exam Const General: no acute distress Orientation: alert HENMT Head: normal to inspection Ears: external ears normal General nose exam: external nose normal Mouth: moist mucous membranes Eyes General: appearance normal, both eyes and all related structures Neck Neck: normal visual inspection Resp Effort & Inspection: normal respiratory effort and able to speak in complete sentences Auscultation: clear to auscultation bilaterally Cardio Jugular venous pressure: no JVD Rate: regular rate Heart Sounds: no murmurs GI Palpation: soft and nontender Skin General skin exam: elasticity normal Neuro General: patient alert and patient oriented x3 Extrem General: normal to inspection Psych Mental Status: mental status grossly normal Course Vital Signs Vital signs: Vital Signs Temperature 36.6 C 05/22/23 09:42 Pulse 86 05/22/23 09:42 Respiratory Rate 20 05/22/23 09:42 Blood Pressure 167/103 H 05/22/23 09:42 Pulse Oximetry 97 05/22/23 09:42 Temperature 36.6 C 05/22/23 09:42 Temperature Source Oral 05/22/23 09:42 Pulse 76 05/22/23 09:52 Pulse 88 05/22/23 09:53 Respiratory Rate 21 05/22/23 09:53 Blood Pressure 144/96 H 05/22/23 09:52 Blood Pressure Mean 107 05/22/23 09:52 Blood Pressure Position Sitting 05/22/23 09:42 Pulse Oximetry 98 05/22/23 09:53 Oxygen Delivery Method Room Air 05/22/23 09:42 Oxygen Flow Rate 0 05/22/23 09:42 Pain Level 0 05/22/23 09:42
[2023-05-22 10:17] LABS: Source Nasal/Nares
--- NOTE | 2023-05-22 10:19 | DI.RAD_ITS ---
Exam(s) XR PORTABLE CHEST AP EXAM: XR PORTABLE CHEST AP CLINICAL HISTORY: shortness of breath TECHNIQUE: 2D digital imaging was performed of the chest. One image was obtained. An AP view was ob tained. COMPARISON: CR XR CHEST 1V IN DI DEPT from 05/02/2022 FINDINGS: MEDIASTINUM: Normal. HEART: Normal. PULMONARY VASCULATURE: Normal. LUNGS: Clear. PLEURAL SPACE: No pleural effusion or pneumothorax. BONE:Within normal limits for the patient's age. OTHER FINDINGS:Normal. IMPRESSION: No acute pulmonary findings. DATA REPOSITORY: RADIATION DOSE DELIVERED:
[2023-05-22 10:24] LABS: PTT Activated 25.5 sec (21.5-31.9); Prothrombin Time 10.4 sec (9.3-11.0)
[2023-05-22 10:42] LABS: ALT 90 U/L (16-63); AST 64 U/L (15-37); Alkaline Phosphatase 115 U/L (46-116); Anion Gap 10.7 mmol/L (3-11); BUN 8 mg/dL (7-18); Bilirubin, Total 0.9 mg/dL (0.2-1.0); CO2 28.3 mmol/L (21.0-32.0); CREATININE 0.7 mg/dL (0.70-1.30); Chloride 101 mmol/L (98-107); ETHANOL BLOOD 9.3 mg/dL (<10); Estimated GFR 127.12 (mL/min/1.73m2); Glucose 146 mg/dL (74-106); Lipase 20 U/L (16-77); Potassium 3.5 mmol/L (3.5-5.1); Sodium 140 mmol/L (136-145); TSH (W/Ref FT4) 3.28 uIU/mL (0.36-3.74); Total Protein 8.5 g/dL (6.4-8.2); Troponin I < 50 ng/L (<or=60)
[2023-05-22 10:50] LABS: COVID-19 PCR Negative (Negative)
[2023-05-22 11:05] LABS: Bilirubin Negative (Negative); Blood Negative (Negative); Clarity Clear (Clear); Glucose Negative (Negative); Ketones Negative (Negative); Leukocyte Esterase Negative (Negative); Nitrite Negative (Negative); Urobilinogen 0.2 mg/dL (Up to 0.2); pH 8.5 (5-8)
[2023-05-23 10:34] LABS: Lyme Ab w Rflx to Lyme Confirm Negative (Negative)
[2023-05-25 23:42] LABS: Anaplasma phagocytophilum Negative (Negative); B. miyamotoi PCR Negative (Negative); Babesia divergens/MO-1 Negative (Negative); Babesia duncani Negative (Negative); Babesia microti Negative (Negative); Ehrlichia chaffeensis Negative (Negative); Ehrlichia ewingii/canis Negative (Negative); Ehrlichia muris eauclairensis Negative (Negative)
== END 2023-05-22 11:59 | disposition home or self-care (01) ==
PROVIDERS: Emergency Provider Emergency Medicine; PCP Family Medicine
DX: R11.2 Nausea with vomiting, unspecified (principal); R06.02 Shortness of breath; R42 Dizziness and giddiness; S20.212A Contusion of left front wall of thorax, initial encounter; Z87.891 Personal history of nicotine dependence
CPT/HCPCS: 80053; 83690; 87426; 87635; 87798; 93005; 96361; 96374; 99285; 71045; 80320; 81003; 84443; 84484; 85025; 85610; 85730; 86618; 93010; 99284; J1790

== ENCOUNTER 2024-01-21 09:24 | Emergency (ER) | payer OTHER, SELFPAY ==
[2024-01-21 09:33] VITALS: BP 188/90; PULSE 94; RESP 18; TEMP 36.8; O2SAT 99
--- NOTE | 2024-01-21 10:14 | ED.GENADUL_ITS ---
Discharge Plan Discharge Details Chief Complaint: PsychEval Primary Care Provider: Flower Huff ED Provider: Yessenia Rocha General Mode of arrival: ambulatory . Date/Time Provider Initiated Documentation: 01/21/24 09:52 . Limitations to Documentation: no limitations . Information obtained by: patient, police, RN notes reviewed and old records reviewed . HPI Narrative: 28-year-old male presents to the ER with law enforcement with chief complaint of suicidal ideation and states that he is going to put a gun to his head. Alert and oriented x 4 does not appear to be under the influence of any substances at this time. He does admit to alcohol daily last drink was last night. Reports thoughts for approximately a month. Related Data Allergies Allergy/AdvReac Type Severity Reaction Status Date / Time amoxicillin Allergy Unknown Hives Verified 05/22/23 09:47 Penicillins Allergy Unknown Hives Verified 05/22/23 09:47 General Stated Complaint: PsychEval NOEL: 2 Review of Systems All systems reviewed & are unremarkable except as noted in HPI and below Psychiatric Psychiatric: Reports as per HPI and Reports suicidal ideation Exam Narrative Exam Narrative: Constitutional: Alert and oriented x3. Appears stated age. Normal body habitus. Head: Normocephalic, no trauma. Eyes: Pupils PERRL, Red reflex noted, EOM's intact. Eyelids symmetrical without lesions, discharge, or swelling. ENT: Bilateral TM's WNL, External ear normal to inspection, no mastoid TTP, swelling, or erythema, Nasal turbinates WNL, no nasal discharge. Normal dentition, Posterior pharynx WNL, no exudate. Chest: RRR, Normal S1, S2, distal pulses intact. Resp: Lungs clear to auscultation bilaterally, no wheezes, rales, or rhonchi. Abdomen: Soft, non-distended, Normoactive bowel sounds all 4 quads. Musculoskeletal: Normal gait. Skin: No suspicious rashes or lesions. Capillary refill less than 2 sec. Neurologic: Cranial nerves II-XII intact. Alert and oriented x 3. Motor: No deficits noted. Sensory: Intact bilaterally all 4 extremities. Hematologic/Lymphatic: No ecchymosis, no lymphadenopathy. Psych Appearance: grossly normal Speech and Movement: speech clear Mood: labile mood Affect: indifferent and blunted Attitude: cooperative Thought Process: normal Thought Content: suicidality Insight: insight good Judgment: fair Course Vital Signs Vital signs: Vital Signs Temperature 36.8 C 01/21/24 09:33 Pulse 94 H 01/21/24 09:33 Respiratory Rate 18 01/21/24 09:33 Blood Pressure 188/90 H 01/21/24 09:33 Pulse Oximetry 99 01/21/24 09:33 Temperature 36.8 C 01/21/24 09:33 Temperature Source Temporal Artery Scan 01/21/24 09:33 Pulse 94 H 01/21/24 09:33 Respiratory Rate 18 01/21/24 09:33 Respiratory Effort Normal, Non-Labored 01/21/24 09:37 Blood Pressure 188/90 H 01/21/24 09:33 Blood Pressure Position Sitting 01/21/24 09:33 Pulse Oximetry 99 01/21/24 09:33 Oxygen Delivery Method Room Air 01/21/24 09:33 Oxygen Flow Rate 0 01/21/24 09:33 Medical Decision Making 28-year-old male presents to the ER with law enforcement with chief complaint of suicidal ideation and states that he is going to put a gun to his head. Alert and oriented x 4 does not appear to be under the influence of any substances at this time. He does admit to alcohol daily last drink was last night. Reports thoughts for approximately a month. Patient in line of sight of nurses station, sitter is at bedside. Patient cleared medically with smart medical clearance form. Does not appear to be under the influence at this time. Will place patient in paper scrubs and collect his belongings instructed field staff manager accordingly. UDS ordered. DAIJA paged and will be here in approximately 10 minutes. 1203: DAIJA Whaley here at BS for patient carlos. 1309: Patient here seeking voluntary placement, told DAIJA that he pulled the trigger multiple times yesterday but the gun jammed. Sitter at BS, patient has remained calm and cooperative thus far. Care is to be handed off to oncoming provider DILIP Wilkerson pending voluntary psychiatric placement. Patient has been calm and cooperative throughout the remainder of her stay. Medical Records Medical records reviewed: Yes I reviewed the patient's medical records. Lab Data Lab results reviewed: Yes I reviewed the patient's lab results. Labs: Laboratory Tests Range/Units 01/21/24 10:52 Urine Opiates Screen (Negative) Negative Urine Methadone Screen (Negative) Negative Ur Barbiturates Screen (Negative) Negative Ur Tricyclics Screen (Negative) Negative Ur Amphetamines Screen (Negative) Negative U Benzodiazepines Scrn (Negative) Negative Urine Cocaine Screen (Negative) Negative Ur THC Screen (Negative) Negative Quality:SDOH Health Related Social Needs: No Data to Display PFSH All Active Problems Hypertension (Chronic) Medical History Balanitis Back pain Dislocation, patella closed (01/03/20) Right patella fracture (01/03/20) Bodies, loose, knee (01/03/20) Ankle sprain (01/03/20) Social History Smoking/Tobacco Use Status: Former Tobacco Use Quit Date: 09/24/15 Tobacco: How many years used: 5 Smoking risk assessment performed?: Yes Alcohol Intake: current Alcohol Intake frequency: a few times a week Alcohol type: beer Drug use: Socially Substance use type: marijuana Housing: house Current gender identity: male Do you feel safe at home: Yes Do you feel safe in your relationship?: Yes Sign Out Sign Out Data: Sign Out Comment: SI, pending voluntary placement. here for stating he was going to put a gun to his head. Told DAIJA that he pulled the trigger multiple times yesterday but the gun was jammed. Calm and cooperative, sitter at BS. Last updated by Yessenia Rocha NP at 01/21/24 15:39
[2024-01-21 11:33] LABS: *AMPHETAMINES SCREEN URINE Negative (Negative); *BARBITURATES SCREEN URINE Negative (Negative); *BENZODIAZEPINES SCREEN URINE Negative (Negative); Cannabinoids THC Negative (Negative); Cocaine Screen,Urine Negative (Negative); METHADONE URINE SCREEN Negative (Negative); OPIATES URINE SCREEN Negative (Negative)
[2024-01-21 11:37] LABS: Tricyclic Antidepressants Negative (Negative)
--- NOTE | 2024-01-21 15:55 | ED.PROG_ITS ---
Date of service: 01/21/24 Time of Service: 15:55 Medical Decision Making Patient seen in signout from Mala Rocha NP-please see her complete note. Essentially this 28-year-old male endorsed to [facility] that he had suicidal ideations and his called the conditioning machine operator because he was going to blow his head off, he states that he has weapons in the house, he states that he pulled the trigger several times but the gun was jammed. He is not currently in any treatment for mental illness. He is voluntary at this time for inpatient bed search but should be EEG if he attempts to leave. He has been calm and cooperative the entirety of shift today requiring no medical or pharmacologic interventions. Patient signed out to oncoming provider Dr. Christensen at shift change. Medical Records Medical records reviewed: Yes I reviewed the patient's medical records. Quality:[facility] Health Related Social Needs: No Data to Display Sign Out Sign Out Data: Sign Out Comment: SI, pending voluntary placement. here for stating he was going to put a gun to his head. Told NEKHS that he pulled the trigger mul tiple times yesterday but the gun was jammed. Calm and cooperative, sitter at BS. Last updated by Yessenia Rocha NP at 01/21/24 15:39 Discharge Plan Discharge Details Chief Complaint: PsychEval Primary Care Provider: Flower Huff ED Provider: Del Ingram
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
--- NOTE | 2024-01-21 18:23 | CMSP_ITS ---
Date of service: 01/21/24 Time of Service: 18:24 Care Management Safety Plan Status Status: Voluntary Reason for Wait Reason for Wait: Inpatient Admission Safety Plan Safety Plan: VOLUNTARY FOR INPATIENT PSYCHIATRIC STABILIZATION.? Patient is appropriate in all interactions since arriving at [facility]; Pt has demonstrated appropriate coping and communication skills, has articulated his or her needs and concerns and is fully engaged during staff interactions. Safety plan has been established with patient, and care team, to adhere to patient goals, identify restrictions based on behavioral status, address nutrition, and determine allowed personal belongings, tools for hygiene and personal care. Determine level of activity including ambulation, level of supervision, visitors, and determine privileges based on behaviors and level of engagement by pt. SAFETY PLAN: 1. Will remain on suicide precautions, in paper clothes 2. Will remain in Zone B under direct supervision of one-on-one staff at all times provided by [employer]; ED, MUSIC BOX MECHANIC electronics worker. 3. May have paper cups, plates, finger foods as well as a cardboard spoon with which to eat meals. 4. Follow [facility] Management of the Admitted Behavioral Health Patient policy. 5. Shower available in Zone B without restriction. 6. Personal belongings-soft items permitted at RN discretion. 7. Visitors- at RN discretion. 8. Activities: soft cart items approved per RN discretion. 9.? Bathroom available in Zone B without restriction. 10. Phone: incoming/outgoing calls limited to [facility] cordless phone at RN dis cretion. Due to VOLUNTARY status, if patient wishes to leave [facility], staff will contact [facility] Crisis Screener ([phone]) and Patient Access Specialist ([phone]) as soon as possible. In the event of elopement, notify [facility] Police ([phone]). Patient is currently voluntarily at [facility] and seeking inpatient admission when a bed becomes available. [facility] Frontline Oil Change Technician will continue seeking placement. Please contact the Patient Access Specialist ([phone]) and [facility] Oil Change Technician ([phone]) for any needed changes in the Safety Plan. Safety plan has been provided to interdepartmental care team.
--- NOTE | 2024-01-21 18:23 | PDOC.CMSAFE ---
Date of service: 01/21/24 Time of Service: 18:24 Care Management Safety Plan Status Status: Voluntary Reason for Wait Reason for Wait: Inpatient Admission Safety Plan Safety Plan: VOLUNTARY FOR INPATIENT PSYCHIATRIC STABILIZATION.? Patient is appropriate in all interactions since arriving at [facility]; Pt has demonstrated appropriate coping and communication skills, has articulated his or her needs and concerns and is fully engaged during staff interactions. Safety plan has been established with patient, and care team, to adhere to patient goals, identify restrictions based on behavioral status, address nutrition, and determine allowed personal belongings, tools for hygiene and personal care. Determine level of activity including ambulation, level of supervision, visitors, and determine privileges based on behaviors and level of engagement by pt. SAFETY PLAN: 1. Will remain on suicide precautions, in paper clothes 2. Will remain in Zone B under direct supervision of one-on-one staff at all times provided by [employer]; ED, PRECIPITATOR supervisor inspecting. 3. May have paper cups, plates, finger foods as well as a cardboard spoon with which to eat meals. 4. Follow [facility] Management of the Admitted Behavioral Health Patient policy. 5. Shower available in Zone B without restriction. 6. Personal belongings-soft items permitted at RN discretion. 7. Visitors- at RN discretion. 8. Activities: soft cart items approved per RN discretion. 9.? Bathroom available in Zone B without restriction. 10. Phone: incoming/outgoing calls limited to [facility] cordless phone at RN discretion. Due to VOLUNTARY status, if patient wishes to leave [facility], staff will contact [facility] Crisis Screener ([phone]) and Hot Tar Roofer ([phone]) as soon as possible. In the event of elopement, notify [facility] Police ([phone]). Patient is currently voluntarily at [facility] and seeking inpatient admission when a bed becomes available. [facility] Frontline Cutter Grinder will continue seeking placement. Please contact the Hot Tar Roofer ([phone]) and [facility] Cutter Grinder ([phone]) for any needed changes in the Safety Plan. Safety plan has been provided to interdepartmental care team.
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
--- NOTE | 2024-01-21 21:04 | NUR.NOTE ---
pt placed in Zone B psychiatric specialty unit, report given to BRANDON Thomas and care relinquished Nursing Note:
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
[2024-01-22 07:16] VITALS: BP 151/96; PULSE 80; RESP 18; TEMP 37.2; O2SAT 97
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
--- NOTE | 2024-01-22 22:58 | W.EDPROG ---
Date of service: 01/22/24 Time of Service: 22:58 Medical Decision Making Patient pending voluntary placement for suicidal ideation. No issues during shift. Melatonin ordered per psychiatry recommendations. Patient would likely need EEG if he decides to leave. Quality:SDOH Health Related Social Needs: No Data to Display Sign Out Sign Out Data: Sign Out Comment: SI, pending voluntary placement. here for stating he was going to put a gun to his head. Told [facility] that he pulled the trigger multiple times yesterday but the gun was jammed. Calm and cooperative, sitter at BS. Last updated by Yessenia Rocha NP at 01/21/24 15:39 Sign Out Comment: Pending voluntary in-pt placement. EE'able if he tries to leave, has firearms in the home, has plan- states he pulled trigger several times but gun was jammed. Has been totally calm and cooperative throughout visit, no acute events or interventions needed. Last updated by Del Ingram PA at 01/21/24 21:48 Sign Out Comment: Awaiting placement. No issues overnight. Telepsych consult placed for today Last updated by Ruth Christensen MD at 01/22/24 06:03 Sign Out Comment: Stable throughout shift, here voluntarily, but needs to be EE'd if the patient tries to leave. Telepsych had no significant recommendations aside for melatonin at night, and observation for withdrawal if atypical symptoms develop . No evidence of withdrawal at this time. Last updated by Del Cruz DO at 01/22/24 16:52 Sign Out Comment: pending voluntary psych placement would need EE if tries to leave No evidence of withdrawal currently Last updated by Bruno Suárez MD at 01/22/24 22:31 Discharge Plan Discharge Details Chief Complaint: PsychEval Primary Care Provider: Flower Huff ED Provider: Bruno Suárez
[2024-01-23] MEDS: Melatonin 3 MG TAB PO (00:19)
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
--- NOTE | 2024-01-23 13:49 | PDOC.CMDIS ---
Documented by User: Pamela Osborne 01/23/24 13:51 Date of service: 01/23/24 Time of Service: 13:49 LACE Index Scoring Tool Questions: Length of Stay (in days): 2 Was the patient admitted via the E.D.?: Yes E.D. Visits: 0 Answers: Total Score: 5 Risk of Readmission: Low Risk Care Management Discharge SDOH Health Related Social Needs: No Data to Display Documented by User: Eva Barron 07/17/24 17:42 LACE Index Scoring Tool Answers: Total Score: 5 Risk of Readmission: Low Risk Care Management Discharge Plan Discharge Plan: The author of this record is unavailable to sign this entry for which they were the author. This is being signed in an administrative capacity to close the note. SDOH Health Related Social Needs: No Data to Display
== END 2024-01-23 14:55 ==
PROVIDERS: Registered Nurse Emergency; Emergency Provider Student in an Organized Health Care Education/Training Program; PCP Family Medicine
DX: R45.851 Suicidal ideations (principal)
CPT/HCPCS: 00123; 80307; 96127; 99285